=== PATIENT | female | born 1975 | race Caucasian/White ===

== ENCOUNTER 2021-02-19 06:34 | Day surgery (SDC) | payer OTHER ==
[2021-02-16 14:34] LABS: COVID AG,FIA SOURCE NASOPHARYNGEAL
[~2021-02-19] VITALS: Ht 175.3 cm; Wt 93.2 kg
[~2021-02-19 06:34] MED LIST: DOXY-336 PO; FLUT16H NASAL; FLUT220HFA IH; MONT10TA32 PO; SIMV10TA97 PO
[2021-02-19] MEDS ORDERED: SODIUM CHLORIDE 0.9% 1,000 ML ONE (06:54)
[2021-02-19] MEDS ORDERED: SODIUM CHLORIDE 0.9% 1,000 ML IV ONE (07:00)
[2021-02-19] MEDS ORDERED: FentaNYL CITRATE PF 100 MCG/2 ML VIAL ONE (07:06)
[2021-02-19] MEDS ORDERED: MIDAZOLAM HCL 2 MG/2 ML VIAL ONE (07:06)
[2021-02-19] MEDS ORDERED: INSU100V37 SQ (07:47)
[2021-02-19] MEDS ORDERED: FAMO20 PO (07:47)
[2021-02-19] MEDS ORDERED: OMEP20 PO (07:47)
[2021-02-19] MEDS ORDERED: FURO80 PO (07:47)
[2021-02-19] MEDS ORDERED: RIFAX550 PO (07:47)
[2021-02-19] MEDS ORDERED: SPIR50 PO (07:47)
[2021-02-19 08:13] LABS: GLUCOMETER DEV NAME(LOC) SDS.; GLUCOSE,POINT OF CARE 196 MG/DL (70-110)
[2021-02-19] MEDS ORDERED: MethylPREDNISolone SOD SUCC 125 MG/2 ML VIAL IVP ONE (09:00)
[2021-02-19] MEDS ORDERED: MethylPREDNISolone SOD SUCC 125 MG/2 ML VIAL ONE (09:21)
[2021-02-19] MEDS ORDERED: LIDOCAINE 4% 50 ML SOLUTION TP ONE (12:00)
[2021-02-19] MEDS ORDERED: ALBUTEROL SULFATE 2.5 MG/0.5 ML NEB SOLUTION NEB ONE (12:00)
[2021-02-19] MEDS ORDERED: LIDOCAINE 2% 30 ML JELLY TP ONE (12:00)
[2021-02-19] MEDS ORDERED: BENZOCAINE 20% 50 MCG/SPRAY 57 GM TP ONE (12:00)
[2021-02-19] MEDS ORDERED: OXYGEN THERAPY IH SCH (20:00)
== END 2021-02-19 10:30 | disposition home or self-care (01) ==
LOC: SURGERY 06:34
PROVIDERS: ATTEND Internal Medicine Critical Care Medicine
DX: R05 Cough (principal); Z20.822 Contact with and (suspected) exposure to COVID-19; I11.0 Hypertensive heart disease with heart failure; I50.9 Heart failure, unspecified; K21.9 Gastro-esophageal reflux disease without esophagitis; D64.9 Anemia, unspecified; E78.00 Pure hypercholesterolemia, unspecified
CPT/HCPCS: 31623; 31624; 71045; 82962; 87015; 87070; 87101; 87205; 87206; 87220; 87426; 88108; 88184; 88185; 88312; C9803; J2250; J2930; J3010; J7030; 31622; J7613; Z7610